=== PATIENT | male | born 1995 | race Two or more races ===

== ENCOUNTER 2022-03-17 08:49 | Emergency (ER) | payer SELFPAY ==
[2022-03-17] MEDS ORDERED: INSULIN -REGULAR HUMAN 50 UNIT/0.5 ML ML ONE (09:42)
[2022-03-17] MEDS ORDERED: NA CHLORIDE 0.9% 1,000 ML ONE (09:43)
[2022-03-17 09:50] LABS: Absolute Lymphocytes (CBC) 1.4 K/uL (0.7-4.9); Hematocrit 43.9 % (39.6-49.0); Lymphocytes % 30.3 % (15.3-44.8); MCV 84.7 fL (80-100); MPV 7.6 fL (7.6-11.3); RBC Red Blood Cell Count 5.18 M/uL (4.33-5.43)
[2022-03-17 09:52] LABS: Potassium 4.7 mmol/L (3.5-5.1)
[2022-03-17 10:23] LABS: Urine Blood Negative (Negative); Urine Glucose 2+ (Negative); Urine Protein Negative (Negative); Urine pH 5.5 (5.0-7.0)
[2022-03-17 10:38] LABS: Barbiturates NEGATIVE (NEGATIVE); Benzodiazepines NEGATIVE (NEGATIVE); Cocaine NEGATIVE (NEGATIVE); METHAMPHETAM NEGATIVE (NEGATIVE); Methadone NEGATIVE (NEGATIVE); Opiates NEGATIVE (NEGATIVE); Phencyclidine NEGATIVE (NEGATIVE); THC Cannibis POSITIVE (NEGATIVE)
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
[2022-03-17 12:10] VITALS: BP 123/81; TEMP 97.6; O2SAT 100
--- NOTE | 2022-03-20 13:52 | EKG ---
Test Date: 2022-03-17 Test Time: 09:23:24 Field Pipelines Supervisor: NANO MEASUREMENT RESULTS: Intervals: Rate: 85 WA: 186 QRSD: 80 QT: 338 QTc: 402 [place]: P: 61 WA: 186 QRS: 80 T: 64 INTERPRETIVE STATEMENTS: Normal sinus rhythm Normal ECG No previous ECG available for comparison Electronically Signed On 03-20-22 13:47:55 CDT by Jose Adams
== END 2022-03-17 11:19 | disposition home or self-care (01) ==
LOC: ER 08:49
DX: E11.65 Type 2 diabetes mellitus with hyperglycemia (principal); F41.9 Anxiety disorder, unspecified; F90.9 Attention-deficit hyperactivity disorder, unspecified type; F17.210 Nicotine dependence, cigarettes, uncomplicated; Z21 Asymptomatic human immunodeficiency virus [HIV] infection status
CPT/HCPCS: 36415; 80048; 80307; 81003; 82947; 85025; 93005; 96361; 96374; 99284; J1815; J7030

== ENCOUNTER 2022-09-23 15:59 | Emergency (ER) | payer SELFPAY ==
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
[2022-09-23 17:16] VITALS: TEMP 97.9; O2SAT 100
[2022-09-23 17:17] VITALS: BP 132/105
== END 2022-09-23 17:11 | disposition home or self-care (01) ==
LOC: ER 15:59
DX: T21.22XA Burn of second degree of abdominal wall, initial encounter (principal); T31.0 Burns involving less than 10% of body surface; E11.621 Type 2 diabetes mellitus with foot ulcer; L60.0 Ingrowing nail; F17.210 Nicotine dependence, cigarettes, uncomplicated; Z21 Asymptomatic human immunodeficiency virus [HIV] infection status
CPT/HCPCS: 99283

== ENCOUNTER 2022-10-16 13:59 | Emergency (ER) | payer SELFPAY ==
[2022-10-16 14:58] LABS: Hematocrit 39.3 % (39.6-49.0); Lymphocytes % 19.2 % (15.3-44.8); MCV 83.2 fL (80-100); RBC Red Blood Cell Count 4.72 M/uL (4.33-5.43)
[2022-10-16 15:11] LABS: Potassium 3.5 mmol/L (3.5-5.1)
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
[2022-10-16 16:38] VITALS: BP 138/83; TEMP 98; O2SAT 100
== END 2022-10-16 16:35 | disposition home or self-care (01) ==
LOC: ER 13:59
DX: B35.3 Tinea pedis (principal); E11.65 Type 2 diabetes mellitus with hyperglycemia; Z21 Asymptomatic human immunodeficiency virus [HIV] infection status
CPT/HCPCS: 36415; 80048; 85025; 99281

== ENCOUNTER 2023-06-20 17:42 | Emergency (ER) | payer SELFPAY ==
[2023-06-20 18:18] LABS: Absolute Lymphocytes (CBC) 1.8 K/uL (0.7-4.9); Hematocrit 37.5 % (39.6-49.0); Lymphocytes % 31.2 % (15.3-44.8); MCV 83.8 fL (80-100); MPV 7.4 fL (7.6-11.3); Platelets 290 thou/uL (152-406); RBC Red Blood Cell Count 4.47 M/uL (4.33-5.43)
[2023-06-20 18:32] LABS: Potassium 4.2 mEq/L (3.5-5.1)
[2023-06-20] MEDS ORDERED: NA CHLORIDE 0.9% 1,000 ML ONE (19:27)
--- NOTE | 2023-06-20 19:35 | RAD REPORT ---
EXAM DESCRIPTION: RAD - Foot Right 3 View - 06/20/2023 7:09 pm CLINICAL HISTORY: r/o osteo Pain and swelling. COMPARISON: No comparisons FINDINGS: Moderate soft tissue swelling affects the third toe. No fracture/ dislocation. No evidence of osteomyelitis. Small posterior calcaneal spur.
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
[2023-06-20] MEDS ORDERED: DOXYCYCLINE 100 MG CAP PO ONE (20:26)
[2023-06-20] MEDS ORDERED: CEPHALEXIN 250 MG CAP ONE (20:26)
[2023-06-20 20:49] VITALS: TEMP 98.1
[2023-06-20 20:55] VITALS: BP 128/84; O2SAT 99
== END 2023-06-20 20:32 | disposition home or self-care (01) ==
LOC: ER 17:42
DX: S91.114A Laceration without foreign body of right lesser toe(s) without damage to nail, initial encounter (principal); F17.210 Nicotine dependence, cigarettes, uncomplicated; Z21 Asymptomatic human immunodeficiency virus [HIV] infection status
CPT/HCPCS: 36415; 80048; 85025; 96360; 99284; J7030

== ENCOUNTER 2023-09-20 11:34 | Inpatient (IN) | payer SELFPAY ==
[2023-09-20] MEDS ORDERED: Levofloxacin 750mg IV 750 MG/150 ML BAG IV ONE (14:33)
[2023-09-20] MEDS ORDERED: CLINDAMYCIN 900MG/D5W 900 MG/50 ML IVPB IV ONE (14:33)
[2023-09-20] MEDS ORDERED: TDAP (DIPHTH,PERTUSS(ACELL),TET VAC) 0.5 ML VIAL IMVAC ONE (14:33)
[2023-09-20] MEDS ORDERED: SILVER SULFADIAZINE 1% 25 GM TOP ONE (14:34)
[2023-09-20] MEDS ORDERED: NA CHLORIDE 0.9% 1,000 ML ONE ×2 (14:34→19:22)
[2023-09-20 14:44] LABS: Absolute Lymphocytes (CBC) 1.5 K/uL (0.7-4.9); Hematocrit 38.9 % (39.6-49.0); Lymphocytes % 21.4 % (15.3-44.8); MCV 80.5 fL (80-100); MPV 7.4 fL (7.6-11.3); Platelets 309 thou/uL (152-406); RBC Red Blood Cell Count 4.83 M/uL (4.33-5.43)
[2023-09-20 15:05] LABS: Albumin 3.3 g/dL (3.4-5.0); Bilirubin Total 0.9 mg/dL (0.2-1.0); C-Reactive Protein 30.8 mg/L (<3.00); Potassium 3.7 mEq/L (3.5-5.1); Protein, Total 7.5 g/dL (6.4-8.2); Troponin High Sensitivity 4.5 pg/mL (<58.9)
--- NOTE | 2023-09-20 15:46 | RAD REPORT ---
EXAM DESCRIPTION: USExtrem Venous W Compress Bil09/20/2023 3:10 pm CLINICAL HISTORY: Leg pain COMPARISON: none FINDINGS: The common femoral, superficial femoral, greater saphenous, popliteal and posterior tibial veins bilaterally are compressible and demonstrate augmentation. Doppler demonstrates good flow. 4.2 x 1.7 x 2.6 centimeter lymph node right groin Grayscale, color and spectral analysis performed on all vessels IMPRESSION: No evidence of deep venous thrombosis involving either lower extremity. 4.2 x 1.7 x 2.6 centimeter lymph node right groin is nonspecific but probably reactive in nature. Fol low up ultrasound in 3 months recommended for re-evaluation
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
[2023-09-20] MEDS ORDERED: ACETAMINOPHEN 325 MG TABLET PO PRN (17:47)
[2023-09-20] MEDS ORDERED: HYDROCODONE/APAP 5/325 MG TAB PO PRN (17:47)
[2023-09-20] MEDS ORDERED: ONDANSETRON 4 MG/2 ML VIAL IV PRN (17:47)
--- NOTE | 2023-09-20 19:11 | RAD REPORT ---
EXAM DESCRIPTION: MRIFoot Right Wo Cont09/20/2023 6:54 pm CLINICAL HISTORY: Right foot pain and swelling COMPARISON: none TECHNIQUE: Axial, sagittal and coronal magnetic resonance imaging of the right foot was obtained. FINDINGS: Images are significantly degraded by patient motion artifact Diffuse edema is present within the subcutaneous tissues Evaluation for subtle abnormal signal first distal phalanx very limited. No obvious osteomyelitis vis ualized Otherwise, no significant abnormal signal is visualized within the bones IMPRESSION: Evaluation for subtle abnormal signal first distal phalanx very limited. No obvious oste omyelitis visualized Otherwise, no significant abnormal signal is visualized within the bones Diffuse edema within the subcutaneous tissues may indicate a cellulitis
--- NOTE | 2023-09-20 19:12 | RAD REPORT ---
EXAM DESCRIPTION: RAD - Foot Right 3 View - 09/20/2023 3:18 pm CLINICAL HISTORY: Right foot pain FINDINGS: No fracture or dislocation is seen No bone or joint abnormality noted
--- NOTE | 2023-09-20 19:46 | RAD REPORT ---
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
[2023-09-20] MEDS: VANCOMYCIN 2 GM in NA CHLORIDE 0.9% 500 ML IVPB SCH (20:00)
[2023-09-20] MEDS: CEFEPIME 2 GM in NA CHLORIDE 0.9% 100 ML IV SCH (21:00)
[2023-09-20] MEDS: ENOXAPARIN 40 MG/0.4 ML SQ SCH (21:00)
[2023-09-20] MEDS: INSULIN REGULAR (HUMAN) 100 UNIT/ML SQ SCH (21:00)
[2023-09-20] MEDS: NA CHLORIDE 0.9% 1,000 ML IV SCH (23:50)
[2023-09-21 00:07] VITALS: BMI 29.1
[2023-09-21 06:26] LABS: Hematocrit 37.1 % (39.6-49.0); Lymphocytes % 20.6 % (15.3-44.8); MCV 80.4 fL (80-100); MPV 7.4 fL (7.6-11.3); Platelets 289 thou/uL (152-406); RBC Red Blood Cell Count 4.61 M/uL (4.33-5.43)
[2023-09-21 06:42] LABS: Magnesium 1.9 mg/dL (1.6-2.4); Phosphorus 2.6 mg/dL (2.5-4.9); Potassium 4.1 mEq/L (3.5-5.1)
--- NOTE | 2023-09-21 07:46 | P.PN ---
Date of Service: 09/21/23 Subjective ROS 10 point ROS as noted above, otherwise negative Physical Exam General: Alert, In no apparent distress, Oriented x3 HEENT: Atraumatic, Normocephalic, PERRLA Neck: Supple, 2+ carotid pulse no bruit, JVD not distended Respiratory: Clear to auscultation bilaterally, Normal air movement Cardiovascular: Normal pulses, Regular rate/rhythm, Normal S1 S2, Edema (bilateral lower extremities) Capillary refill: <2 Seconds Gastrointestinal: Normal bowel sounds, Soft and benign Musculoskeletal: No clubbing, Swelling (bilateral lower extremities) Integumentary: Skin breakdown (bilateral feet), Tenderness/swelling (bilateral feet), Erythema (bilateral lower extremities), Warmth (bilateral lower exptremities) Neurological: Normal speech, Normal strength at 5/5 x4 extr, Normal tone Vitals Reviewed Problem list Right foot infection Bilateral lower extremity edema hypertenstive likely d/t pain History of ADHD History of neuropathy History or HIV Diabetes mellitus- IDDM Assessment and Plan Right foot infection Bilateral lower extremity edema US bilateral lower extremities reports good compressibility Right foot xray No fracture or dislocation is seen. No bone or joint abnormality noted MRI right foot "Evaluation for subtle abnormal signal first distal phalanx very limited. No obvious osteomyelitis visualized. Otherwise, no significant abnormal signal is visualized within the bones. Diffuse edema within the subcutaneous tissues may indicate a cellulitis. C-reactive protein 30.8, neutrophils 63.2, white blood cells 7.1 Started cleocin and levaquin in the ED Cefepime and vancomycin started Pain control Silvadene applied to foot at dressing changes Follow blood cultures hypertenstive likely d/t pain monitor OVN no history of HTn History of ADHD History of neuropathy History or HIV restart home medications Diabetes mellitus- IDDM Accucheck with SSI Serum glucose 150 DVT ppx Full code LOS 2-3 days
[2023-09-21 15:52] VITALS: BP 157/115; TEMP 98; O2SAT 100
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
--- NOTE | 2023-09-24 13:49 | EKG ---
Test Date: 2023-09-20 Test Time: 14:42:57 Candy Maker: AMMY MEASUREMENT RESULTS: Intervals: Rate: 78 ID: [id number] QRSD: 86 QT: 366 QTc: 417 [place]: P: 71 ID: [id number] QRS: 77 T: 81 INTERPRETIVE STATEMENTS: Sinus rhythm with marked sinus arrhythmia Anteroseptal infarct, age undetermined Abnormal ECG Compared to ECG 03/17/2022 09:23:24 Myocardial infarct finding now present Electronically Signed On 09-24-23 13:37:05 [employer] by Jose Adams
== END 2023-09-21 10:19 | disposition left against medical advice (07) | DRG 603 ==
LOC: ER 11:34 → ERHOLD 19:05 → 2ND 23:28
PROVIDERS: ADMIT Internal Medicine; ATTEND Internal Medicine
DX: L03.115 Cellulitis of right lower limb (principal); I10 Essential (primary) hypertension; F90.9 Attention-deficit hyperactivity disorder, unspecified type; E11.40 Type 2 diabetes mellitus with diabetic neuropathy, unspecified; Z21 Asymptomatic human immunodeficiency virus [HIV] infection status; Z79.4 Long term (current) use of insulin; Z53.29 Procedure and treatment not carried out because of patient's decision for other reasons; Z79.899 Other long term (current) drug therapy
CPT/HCPCS: 36415; 80048; 80053; 82947; 83735; 84100; 84484; 85025; 86140; 87040; 93005; 93925; 93970; J0692; J1650; J1815; J7030; J7040